=== PATIENT | female | born 1995 | race Caucasian/White ===

== ENCOUNTER 2017-02-18 14:03 | Emergency (ER) | payer OTHER ==
[2017-02-18 14:12] VITALS: BP 146/87; PULSE 102; TEMP 98; BMI 32.9
--- NOTE | 2017-02-18 14:13 | PDOC ---
Rapid Medical Evaluation Time Seen by Provider: 02/18/17 14:10 Medical Evaluation: 02/18/17 14:10 I have performed a brief in-person evaluation of this patient. The patient presents with a chief complaint of: 18 weeks , sent in by PMD for hyperemesis gravidarum and dehydration. No abd pain or vag bleed. Last US several weeks ago, due for another US this Thursday Pertinent physical exam findings:Well andres in NAD and stable I have ordered the following:chem/cbc/ua/upreg The patient will proceed to the ED for further evaluation. Discharge Disposition - Referrals Referrals: Clarissa Devi MD [Primary Care Provider] - - Patient Instructions - Post Discharge Activity
[2017-02-18 14:44] LABS: BASOPHIL 0.3 % (0-2.0); EOSINOPHIL 1.8 % (0-4.5); MCH 30.3 pg (25.7-33.7); MCHC 32.9 g/dl (32.0-36.0); MEAN CELL VOLUME 92.1 fl (80-96); MEAN PLT VOLUME 10.2 fl (7.5-11.1); NEUTROPHILS 72.9 % (42.8-82.8); PLATELET COUNT 198 K/MM3 (134-434); RDW 13.7 % (11.6-15.6); WHITE BLOOD COUNT 9.4 K/mm3 (4.0-10.0)
[2017-02-18 14:48] LABS: PH,URINE 6.5 (5.0-8.0); URINE APPEARANCE CLEAR; URINE BILIRUBIN 1+ (NEGATIVE); URINE BLOOD NEGATIVE (NEGATIVE); URINE COLOR ORANGE; URINE GLUCOSE (UA) NEGATIVE (NEGATIVE); URINE KETONE 3+ (NEGATIVE); URINE NITRITE NEGATIVE (NEGATIVE); URINE PROTEIN TRACE (NEGATIVE)
[2017-02-18 15:11] LABS: ALBUMIN 3.1 g/dl (3.4-5.0); ANION GAP 11 (8-16); CALCIUM 8.6 mg/dL (8.5-10.1); CO2 22 mmol/L (21-32); CREATININE 0.6 mg/dL (0.55-1.02); GLUCOSE,RANDOM 72 mg/dL (74-106); SGOT/AST 10 U/L (15-37); SGPT/ALT 16 U/L (12-78)
[2017-02-18 15:13] LABS: ALK PHOS 77 U/L (45-117); BILIRUBIN,TOTAL 0.3 mg/dL (0.2-1.0); TOT PROT 6.6 g/dl (6.4-8.2)
--- NOTE | 2017-02-18 15:34 | PDOC ---
History of Present Illness - General Chief Complaint: Nausea/Vomiting Stated Complaint: SENT BY PCP Time Seen by Provider: 02/18/17 14:10 History Source: Patient Exam Limitations: No Limitations - History of Present Illness Initial Comments: 02/18/17 16:05 MY CHIEF COMPLAINT: NAUSEA, VOMITING, LIGHTHEADEDNESS 18 WKS HISTORY OF PRESENT ILLNESS: She is a 21 year old female 18 weeks [address] Clarissa Devi due to patient being dehydrated as noted by ketones in the urine at the clinic today. Patient reports that she vomited on 02/09/2017, 02/17/17 twice and was nauseous during the day and felt lightheaded. Patient also reports today feeling nauseous but no vomiting and lightheadedness continues. Patient denies any fever, any nasal congestion, sore throat, cough, or any constipation or diarrhea or any other symptoms. Patient denies any vaginal discharge or vaginal bleeding. Patient is due to have an ultrasound for her on 02/20/2017. Patient reports last eating yesterday morning soup and nothing today due to feeling nauseous and lightheaded. Patient was sent here for hydration. 02/18/17 17:55 Timing/Duration: intermittent (nausea, vomiting 03/29 & 02/17 with lightheadedness , today no vomiting, nausea lightheadedness) Severity: moderate Associated Symptoms: reports: nausea/vomiting Past History - Past Medical History Allergies/Adverse Reactions: Allergies Allergy/AdvReac Type Severity Reaction Status Date / Time No Known Allergies Allergy Verified 02/18/17 14:11 Home Medications: Ambulatory Orders NK [No Known Home Medication] 02/18/17 COPD: No Other medical history: NONE - Suicide/Smoking/Psychosocial Hx Smoking History: Never smoked Review of Systems - Review of Systems Able to Perform ROS?: Yes Constitutional: Yes: Loss of Appetite HEENTM: No: Symptoms Reported Respiratory: No: Symptoms reported Cardiac (ROS): Yes: Lightheadedness ABD/GI: No: Symptoms Reported : No: Symptoms Reported Musculoskeletal: No: Symptoms Reported Integumentary: No: Symptoms Reported Neurological: No: Symptoms reported *Physical Exam - Vital Signs Last Vital Signs Temp Pulse Resp BP Pulse Ox 98.0 F 102 H 20 146/87 97 02/18/17 14:08 02/18/17 14:08 02/18/17 14:08 02/18/17 14:08 02/18/17 14:08 - Physical Exam General Appearance: Yes: Appropriately Dressed HEENT: positive: EOMI, KERRI, Normal ENT Inspection Neck: negative: Lymphadenopathy (R), Lymphadenopathy (L) Respiratory/Chest: positive: Lungs Clear, Normal Breath Sounds. negative: Chest Tender, Respiratory Distress Cardiovascular: positive: Regular Rhythm, Regular Rate, S1, S2 Gastrointestinal/Abdominal: positive: Normal Bowel Sounds, Soft. negative: Tender, Organomegaly, Distended, Rebound, Tenderness, Hepatomegaly, Spleenomegaly Integumentary: positive: Normal Color Neurologic: positive: sheet rocker II-XII NML intact, Fully Oriented, Alert, Normal Response, Respond to painful stimul, Responsive. negative: Numbness, Sensory Deficit ED Treatment Course - LABORATORY CBC & Chemistry Diagram: 02/18/17 14:25 02/18/17 14:25 - ADDITIONAL ORDERS Additional order review: Laboratory Results 02/18/17 02/18/17 14:25 14:25 Sodium 137 Potassium 4.1 Chloride 104 Carbon Dioxide 22 Anion Gap 11 BUN 10 Creatinine 0.6 Creat Clearance w eGFR > 60 Random Glucose 72 L Calcium 8.6 Total Bilirubin 0.3 AST 10 L ALT 16 Alkaline Phosphatase 77 Total Protein 6.6 Albumin 3.1 L Urine Color [place] Urine Appearance Clear Urine pH 6.5 Ur Specific [place] 1.025 Urine Protein Trace H Urine Glucose (UA) Negative Urine Ketones 3+ H Urine Blood Negative Urine Nitrite Negative Urine Bilirubin 1+ H Urine Urobilinogen 2.0 H Urine HCG, Qual Positive 02/18/17 14:25 RBC 3.87 MCV 92.1 MCHC 32.9 RDW 13.7 MPV 10.2 Neutrophils % 72.9 Lymphocytes % 20.3 Monocytes % 4.7 Eosinophils % 1.8 Basophils % 0.3 Medical Decision Making - Medical Decision Making 02/18/17 16:12 She is a 21 year old female 18 weeks [address] Clarissa Devi due to patient being dehydrated as noted by ketones in the urine at the clinic today. Patient reports that she vomited on 02/09/2017, 02/17/17 twice and was nauseous during the day and felt lightheaded. Patient also reports today feeling nauseous but no vomiting and lightheadedness continues. Patient denies any fever, any nasal congestion, sore throat, cough, or any constipation or diarrhea or any other symptoms. Patient denies any vaginal discharge or vaginal bleeding. Patient is due to have an ultrasound for her on 02/20/2017. Patient reports last eating yesterday morning soup and nothing today due to feeling nauseous and lightheaded. Patient was sent here for hydration. NAUSEA, VOMITING, DEHYDRATION WITH LIGHTHEADEDNESS IN PLAN IV INSERT D 5 WITH 0.9% NS BOLUS 1000 ML 02/18/17 16:15 Laboratory Tests 02/18/17 02/18/17 02/18/17 14:25 14:25 14:25 WBC 9.4 RBC 3.87 Hgb 11.7 Hct 35.6 MCV 92.1 MCH 30.3 MCHC 32.9 RDW 13.7 Plt Count 198 MPV 10.2 Neutrophils % 72.9 Lymphocytes % 20.3 Monocytes % 4.7 Eosinophils % 1.8 Basophils % 0.3 Sodium 137 Potassium 4.1 Chloride 104 Carbon Dioxide 22 Anion Gap 11 BUN 10 Creatinine 0.6 Creat Clearance w eGFR > 60 Random Glucose 72 L Calcium 8.6 Total Bilirubin 0.3 AST 10 L ALT 16 Alkaline Phosphatase 77 Total Protein 6.6 Albumin 3.1 L Urine Color [place] Urine Appearance Clear Urine pH 6.5 Ur Specific [place] 1.025 Urine Protein Trace H Urine Glucose (UA) Negative Urine Ketones 3+ H Urine Blood Negative Urine Nitrite Negative Urine Bilirubin 1+ H Urine Urobilinogen 2.0 H Urine HCG, Qual Positive 02/18/17 17:50 feeling better was able to drink and eat something here will have her follow up with Dr. Devi 02/18/17 17:55 *DC/Admit/Observation/Transfer Diagnosis at time of Disposition: Dehydration during , Nausea and vomiting during prior to 22 weeks gestation - Discharge Dispostion Disposition: HOME Condition at time of disposition: Stable - Referrals Referrals: Clarissa Devi MD [Primary Care Provider] - - Patient Instructions Additional Instructions: try to eat and drink as tolerated, gingerale, med tea and saltine crackers can decrease nausea follow up with Dr. Clarissa Devi as soon as possible return to emergency room if symptoms worsen patient voiced understanding of discharge instructions and all questions were answered - Post Discharge Activity
[2017-02-18] MEDS ORDERED: SODIUM CHLORIDE 1,000 ML IV STA (15:54)
[2017-02-18] MEDS ORDERED: DEXTROSE 5%-NORMAL SALINE 1,000 ML IV ONE (15:58)
[2017-02-18 19:58] LABS: URINE LEUK ESTERASE 1+ (NEGATIVE)
[2017-02-18 22:19] LABS: URINE BACTERIA MANY /hpf (NEGATIVE); URINE RBC 0-2 /hpf (0-3)
== END 2017-02-18 18:11 | disposition home or self-care (01) ==
LOC: JERFT 14:03
PROC: 3E0337Z Introduction of Electrolytic and Water Balance Substance into Peripheral Vein, Percutaneous Approach (ICD-10-PCS; principal; 2017-02-18)
DX: O26.892 Other specified pregnancy related conditions, second trimester (principal); O21.1 Hyperemesis gravidarum with metabolic disturbance; Z3A.18 18 weeks gestation of pregnancy
CPT/HCPCS: 36415; 80053; 81003; 81015; 84703; 85025; 96360; 99281-25

== ENCOUNTER 2017-07-01 17:15 | Inpatient (IN) | payer OTHER ==
[2017-07-01 19:15] VITALS: BMI 35.2
[2017-07-01] MEDS ORDERED: ELECTROLYTE-148 SOLN 1,000 ML IV SCH (20:45)
[2017-07-01 20:48] LABS: BASO % 0.2 % (0-2.0); EOS % 1.1 % (0-4.5); HEMATOCRIT 34.3 % (32.4-45.2); HEMOGLOBIN 11.4 GM/dL (10.7-15.3); LYMPH % 19.3 % (8-40); MCH 30.8 pg (25.7-33.7); MCHC 33.3 g/dl (32.0-36.0); MEAN CELL VOLUME 92.4 fl (80-96); MONO % 6.1 % (3.8-10.2); NEUT % 73.3 % (42.8-82.8); PLATELET COUNT 239 K/MM3 (134-434); RBC 3.71 M/mm3 (3.60-5.2); RDW 14.5 % (11.6-15.6); RETICULOCYTES 1.14 % (0.5-1.5); WHITE BLOOD COUNT 11.7 K/mm3 (4.0-10.0)
[2017-07-01 21:00] LABS: ANION GAP 5 (8-16); BLOOD UREA NITROGEN 13 mg/dL (7-18); CALCIUM 8.5 mg/dL (8.5-10.1); CHLORIDE 111 mmol/L (98-107); CO2 25 mmol/L (21-32); CREATININE 0.6 mg/dL (0.55-1.02); GAMMA GLUTAMYL TRANSPEPTIDASE 15 U/L (5-85); GLUCOSE,RANDOM 73 mg/dL (74-106); POTASSIUM 4.3 mmol/L (3.5-5.1); SGOT/AST 9 U/L (15-37); SGPT/ALT 19 U/L (12-78); SODIUM 141 mmol/L (136-145); URIC ACID 4.1 mg/dL (2.6-7.2)
[2017-07-01 21:03] LABS: INR 0.97 (0.82-1.09)
[2017-07-01 21:06] LABS: ACTIVATED PTT 25.2 SECONDS (26.9-34.4)
[2017-07-01 21:18] VITALS: PULSE 81
[2017-07-01 21:18] LABS: URINE APPEARANCE CLOUDY; URINE BILIRUBIN NEGATIVE (<2.0 mg/dL); URINE BLOOD NEGATIVE (NEGATIVE); URINE COLOR YELLOW; URINE GLUCOSE (UA) NEGATIVE (NEGATIVE); URINE KETONE NEGATIVE (NEGATIVE); URINE NITRITE NEGATIVE (NEGATIVE); URINE PROTEIN NEGATIVE (NEGATIVE); URINE UROBILINOGEN NEGATIVE mg/dL (0.2-1.0)
[2017-07-01 22:11] LABS: URINE LEUK ESTERASE 1+ (NEGATIVE)
[2017-07-01 22:16] VITALS: BP 135/83; TEMP 98.1
--- NOTE | 2017-07-01 22:34 | HP ---
Past Medical History - Admission Chief Complaint: Labor pain History of Present Illness: 21 yo , @ 39 weeks gestation, presents to L&D c/o labor pain. Upon admission there was evidence of elevated blood pressure. She denies any vaginal bleeding nor rupture of membrane. History Source: Patient Limitations to Obtaining History: No Limitations - Past Medical History ...: 1 ...Para: 0 ...LMP: 09/26/16 ... Weeks Gestation by Dates: 39.4 ...EDC by Dates: 07/04/17 ...EDC by Sono: 07/17/17 - Past Surgical History Past Surgical History: Yes: None Hx Myomectomy: No Hx Transabdominal Cerclage: No - Smoking History Smoking history: Never smoked Have you smoked in the past 12 months: No - Alcohol/Substance Use Hx Alcohol Use: No - Social History Usual Living Arrangement: Yes: With Significant Other History of Recent Travel: No Home Medications - Allergies Allergies/Adverse Reactions: Allergies Allergy/AdvReac Type Severity Reaction Status Date / Time No Known Allergies Allergy Verified 07/01/17 19:22 - Home Medications Home Medications: Ambulatory Orders Vit/Iron Fum/Folic AC [ Tablet] 1 tab PO DAILY 05/01/17 Family Disease History - Family Disease History Family History: Unremarkable Review of Systems - Review of Systems Constitutional: reports: No Symptoms Eyes: reports: No Symptoms HENT: reports: No Symptoms Neck: reports: No Symptoms Cardiovascular: reports: No Symptoms Respiratory: reports: No Symptoms Gastrointestinal: reports: No Symptoms Genitourinary: reports: Pain Breasts: reports: No Symptoms Reported Musculoskeletal: reports: No Symptoms Integumentary: reports: No Symptoms Neurological: reports: No Symptoms Endocrine: reports: No Symptoms Hematology/Lymphatic: reports: No Symptoms Psychiatric: reports: No Symptoms Pain Intensity: 5 Physical Exam - Maternity Vital Signs: Vital Signs Temperature 98.1 F 07/01/17 22:00 Pulse Rate 81 07/01/17 22:00 Respiratory Rate 20 07/01/17 22:00 Blood Pressure 135/83 07/01/17 22:00 O2 Sat by Pulse Oximetry (%) Constitutional: Yes: Well Nourished Eyes: Yes: Conjunctiva Clear HENT: Yes: Atraumatic Neck: Yes: Supple Cardiovascular: Yes: Regular Rate and Rhythm Lungs: Clear to auscultation - Abdominal Exam/OB Number of Fetuses: Single Presentation: Vertex Contractions: Yes Regularity: Irregular - Vaginal Exam/OB Vaginal Bleediing: No Dilatation (cm): 1-2 Effacement (%): 60 Amniotic Membrane Status: Intact Presentation: Vertex/Position Station: -2 - Physical Exam Musculoskeletal: Yes: WNL Extremities: Yes: WNL ...Motor Strength: WNL Psychiatric: Yes: Alert, Oriented - Labs Lab Results: CBC, BMP 07/01/17 19:50 07/01/17 19:50 Problem List - Problems (1) Pain during labor Code(s): O99.89 - OTH DISEASES AND CONDITIONS COMPL PREG/CHLDBRTH; R52 - PAIN, UNSPECIFIED Assessment/Plan Pain during labor induced Hypertension Admit to L&D [facility] Labs Continue close monitoring
--- NOTE | 2017-07-01 22:36 | PN ---
Progress Note (short form) - Note Progress Note: Patient re-evaluated Blood pressure has improved PIH Labs are WNL Patient found to be 37.5 weeks. Decision made to D/C home Problem List - Problems (1) Pain during labor Code(s): O99.89 - OTH DISEASES AND CONDITIONS COMPL PREG/CHLDBRTH; R52 - PAIN, UNSPECIFIED
--- NOTE | 2017-07-01 22:40 | DS ---
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 Vital Signs: Vital Signs Temperature 98.1 F 07/01/17 22:00 Pulse Rate 81 07/01/17 22:00 Respiratory Rate 20 07/01/17 22:00 Blood Pressure 135/83 07/01/17 22:00 O2 Sat by Pulse Oximetry (%) Constitutional: Yes: Well Nourished Eyes: Yes: Conjunctiva Clear HENT: Yes: Atraumatic Neck: Yes: Supple Respiratory: Yes: Regular Gastrointestinal: Yes: Normal Bowel Sounds Cervix: Yes: Other (1-2 cm) Uterus: Yes: Other (Gravid) Neurological: Yes: Alert, Oriented ...Motor Strength: WNL Psychiatric: Yes: Alert, Oriented Labs: CBC, BMP 07/01/17 19:50 07/01/17 19:50 Delivery, Single - Feeding Plan Initial Plan: Elected not to breastfeed exclusively throughout hospitalization Discharge Summary Reason For Visit: LABOR Current Active Problems Pain during labor (Acute) Procedures: Principal: Non Stress test Hospital Course: Non Stress test found to be reactive. PIH are WNL No cervical change Condition: Good - Instructions Diet, Activity, Other Instructions: Regular diet Labor precautions Return to L&D if pain worsen and if membrane rupture Referrals: Jazmyn Dumont MD [Staff Physician] - (patient to maintain appt as scheduled at clinic patient to increase amount of water she drinks to 10--120z glasses daily patient to return to labor & delivery if water breaks, regular contractions, vaginal bleeding or decreased movement patient verbalizes clear understanding of all discharge instructions patient discharged to home stable intact & undelivered) Disposition: HOME - Home Medications Comprehensive Discharge Medication List: Ambulatory Orders Vit/Iron Fum/Folic AC [ Tablet] 1 tab PO DAILY 05/01/17
[2017-07-01 22:55] LABS: EPI CELLS FEW /HPF (FEW); URINE BACTERIA RARE /hpf (NONE SEEN); URINE MUCUS RARE
== END 2017-07-01 22:30 | disposition home or self-care (01) | DRG 566 ==
LOC: JDEL 17:15 → JLDR 18:25
PROVIDERS: ADMIT Obstetrics & Gynecology; ATTEND Obstetrics & Gynecology
DX: O13.3 Gestational [pregnancy-induced] hypertension without significant proteinuria, third trimester (principal); Z3A.37 37 weeks gestation of pregnancy
CPT/HCPCS: 36415; 80048; 81003; 81015; 82977; 83010; 84450; 84460; 84550; 85025; 85044; 85610; 85730; 86593; 86850; 86900; 86901; 87389

== ENCOUNTER 2017-07-03 10:25 | Inpatient (IN) | payer OTHER ==
[2017-07-03] MEDS ORDERED: SODIUM CHLORIDE 1,000 ML IV SCH (12:00)
[2017-07-03] MEDS ORDERED: AMPICILLIN SODIUM 2 GM VIAL ONE (12:27)
[2017-07-03] MEDS ORDERED: AMPICILLIN - 2 GM in SODIUM CHLORIDE 100 ML IVPB ONE (12:30)
[2017-07-03] MEDS ORDERED: PROMETHAZINE HCL 25 MG/1 ML VIAL ONE (13:06)
[2017-07-03] MEDS ORDERED: BUTORPHANOL TARTRATE 1 MG/ML VIAL ONE ×2 (13:06)
[2017-07-03] MEDS ORDERED: PROMETHAZINE HCL 25 MG/1 ML VIAL IVPB ONE (13:45)
[2017-07-03] MEDS ORDERED: BUTORPHANOL TARTRATE 1 MG/ML VIAL IVPB ONE (13:45)
[2017-07-03 14:06] VITALS: BMI 35.2
[2017-07-03] MEDS: AMPICILLIN - 1 GM in SODIUM CHLORIDE 100 ML IVPB SCH ×2 (16:39→20:25)
[2017-07-03] MEDS ORDERED: OXYTOCIN 30 UNITS in 0.9% NS 30 UNIT/500 ML INFUS.BAG IVPB ONE (16:53)
[2017-07-03] MEDS ORDERED: OXYTOCIN 30 UNITS in 0.9% NS 30 UNIT/500 ML INFUS.BAG IVPB SCH (17:15)
[2017-07-03] MEDS ORDERED: AMPICILLIN SODIUM 1 GM VIAL ONE (20:04)
[2017-07-03] MEDS ORDERED: NALOXONE HCL 0.4 MG/ML VIAL IVPUSH PRN (20:38)
[2017-07-03] MEDS ORDERED: FENTANYL/BUPIVACAINE/NS/PF - PCEA - 50 ML DISP.SYRIN EP ONE (20:41)
--- NOTE | 2017-07-03 20:43 | HP ---
Past Medical History - Admission Chief Complaint: Labor pain History of Present Illness: 21 yo , @ 38 weeks gestation, EDC 07/17/17, admitted for labor pain. She denies any rupture of membrane nor vaginal bleeding. History Source: Patient Limitations to Obtaining History: No Limitations - Past Medical History ...: 1 ...Para: 0 ...Term: 0 ...: 0 ...Spon : 0 ...Induced : 0 ...Multiple Gestation: 0 ...LMP: 09/26/16 ... Weeks Gestation by Dates: 39.4 ...EDC by Dates: 07/04/17 ...EDC by Sono: 07/17/17 - Past Surgical History Past Surgical History: Yes: None Hx Myomectomy: No Hx Transabdominal Cerclage: No - Smoking History Smoking history: Never smoked Have you smoked in the past 12 months: No - Alcohol/Substance Use Hx Alcohol Use: No History of Substance Use: reports: None - Social History Usual Living Arrangement: Yes: With Significant Other History of Recent Travel: No Home Medications - Allergies Allergies/Adverse Reactions: Allergies Allergy/AdvReac Type Severity Reaction Status Date / Time No Known Allergies Allergy Verified 07/03/17 11:21 - Home Medications Home Medications: Ambulatory Orders Vit/Iron Fum/Folic AC [ Tablet] 1 tab PO DAILY 05/01/17 Family Disease History - Family Disease History Family History: Unremarkable Review of Systems - Review of Systems Constitutional: reports: No Symptoms Eyes: reports: No Symptoms HENT: reports: No Symptoms Neck: reports: No Symptoms Cardiovascular: reports: No Symptoms Respiratory: reports: No Symptoms Gastrointestinal: reports: No Symptoms Genitourinary: reports: Pain Breasts: reports: No Symptoms Reported Musculoskeletal: reports: No Symptoms Integumentary: reports: No Symptoms Neurological: reports: No Symptoms Endocrine: reports: No Symptoms Hematology/Lymphatic: reports: No Symptoms Psychiatric: reports: No Symptoms Pain Intensity: 7 Physical Exam - Maternity Vital Signs: Vital Signs Temperature 97.8 F 07/03/17 15:00 Pulse Rate 89 07/03/17 19:00 Respiratory Rate 20 07/03/17 19:00 Blood Pressure 132/74 07/03/17 19:00 O2 Sat by Pulse Oximetry (%) Constitutional: Yes: Well Nourished Eyes: Yes: Conjunctiva Clear HENT: Yes: Atraumatic Neck: Yes: Supple Cardiovascular: Yes: Regular Rate and Rhythm Lungs: Clear to auscultation - Abdominal Exam/OB Number of Fetuses: Single Presentation: Vertex Contractions: No - Vaginal Exam/OB Dilatation (cm): 4 Effacement (%): 70 Amniotic Membrane Status: Intact Presentation: Vertex/Position Station: -2 - Physical Exam Musculoskeletal: Yes: WNL Extremities: Yes: WNL Integumentary: Yes: WNL ...Motor Strength: WNL Psychiatric: Yes: Alert, Oriented Assessment/Plan Pain during labor Admit to L&D Analgesia as needed Anticipate
[2017-07-03] MEDS ORDERED: FENTANYL/BUPIVACAINE/NS/PF - PCEA - 50 ML DISP.SYRIN EP SCH (20:45)
[2017-07-03] MEDS ORDERED: ELECTROLYTE-148 SOLN 1,000 ML IV SCH (20:45)
--- NOTE | 2017-07-03 20:48 | PN ---
Progress Note (short form) - Note Progress Note: 21 yo @ 38 weeks gestation admitted for labor pain. She's seen and evaluated, she c/o moderate discomfort. She's status post stadol. FHR : Reassuring [place] : + regular contractions VE : 5 / 80 / -1 AROM ( clear ) A/P : Active labor Epidural anesthesia Continue Pitocin augmentation Anticipate
[2017-07-03] MEDS ORDERED: OXYTOCIN 20 UNITS in 0.9% NS 20 UNIT/1,000 ML INFUS.BAG IV ONE (23:25)
[2017-07-04] MEDS ORDERED: BISACODYL 10 MG SUPP.RECT RC PRN (00:14)
[2017-07-04] MEDS ORDERED: METHYLERGONOVINE MALEATE 0.2 MG/1 ML AMP IM PRN (00:14)
[2017-07-04] MEDS ORDERED: IBUPROFEN 600 MG TABLET (FP) PO PRN (00:14)
[2017-07-04] MEDS ORDERED: BENZOCAINE 20% 57 GM BOTTLE TP PRN (00:14)
[2017-07-04] MEDS ORDERED: WITCH HAZEL 50% (TUCKS) 40 PAD/JAR PAD TP PRN (00:14)
[2017-07-04] MEDS ORDERED: ACETAMINOPHEN 325 MG TABLET (FP) PO PRN (00:14)
[2017-07-04] MEDS ORDERED: BENZOCAINE 28 GM HEMORRHOIDAL OINTMENT TP PRN (00:14)
[2017-07-04] MEDS ORDERED: OXYTOCIN 20 UNITS in 0.9% NS 20 UNIT/1,000 ML INFUS.BAG IV SCH (00:15)
--- NOTE | 2017-07-04 00:18 | PN ---
Delivery - Delivery Vaginal Delivery: Spontaneous Type of Anesthesia: Epidural Episiotomy/Laceration: None EBL (cc): 300 Delivery, Single - Feeding Plan Initial Plan: Elected not to breastfeed exclusively throughout hospitalization Remarks - Remarks Remarks: Normal spontaneous vaginal delivery of a live infant girl over intact perineum. Nose / Oropharynx suctioned @ perineum. Nuchal cord x 1 clamped and cut. Placenta expelled spontaneously intact.
[2017-07-04] MEDS ORDERED: OXYTOCIN 20 UNITS in 0.9% NS 20 UNIT/1,000 ML INFUS.BAG IV ONE (01:32)
[2017-07-04] MEDS: FERROUS SO4 325 MG TABLET (FP) PO SCH ×3 (08:00→16:54)
[2017-07-04] MEDS: PRENATAL VITAMINS W/ FOLIC ACID TABLET (FP) PO SCH (10:00)
[2017-07-04] MEDS ORDERED: FLU VACC QS2017-18 36MOS UP/PF 60 MCG/0.5 ML SYRINGE IM ONE (10:00)
--- NOTE | 2017-07-05 07:34 | PN ---
Post Progress Note - Subjective Subjective: 21 yo Para 1 status post vaginal delivery, seen and evaluated. Doing well. Post Day: 1 Type of Delivery: Vital Signs: Vital Signs Temperature 97.9 F 07/04/17 21:00 Pulse Rate 95 H 07/04/17 21:00 Respiratory Rate 20 07/04/17 21:00 Blood Pressure 110/71 07/04/17 21:00 O2 Sat by Pulse Oximetry (%) 100 07/04/17 00:30 Breast Exam: Yes: Soft Uterus: Yes: Fundus Firm Abdomen/GI: Yes: Abdomen soft, Tolerating PO Lochia: Yes: Rubra Lochia, amount: Moderate Extremities: Yes: Calves non-tender Perineum: Yes: Intact Activity: Ambulating Assessment/Plan Normal spontaneous vaginal delivery Stable Continue routine care
--- NOTE | 2017-07-05 07:43 | DS ---
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 Vital Signs: Vital Signs Temperature 97.9 F 07/04/17 21:00 Pulse Rate 95 H 07/04/17 21:00 Respiratory Rate 20 07/04/17 21:00 Blood Pressure 110/71 07/04/17 21:00 O2 Sat by Pulse Oximetry (%) 100 07/04/17 00:30 Constitutional: Yes: Well Nourished Eyes: Yes: Conjunctiva Clear HENT: Yes: Atraumatic Neck: Yes: Supple Cardiovascular: Yes: Regular Rate and Rhythm Respiratory: Yes: Regular Gastrointestinal: Yes: Normal Bowel Sounds Pelvis: Yes: WNL External Genitalia: Yes: Normal Vaginal Exam: Yes: Normal Cervix: Yes: Normal Uterus: Yes: Firm ....Post : Yes: Uterus firm, Moderate lochia serosa Breast(s): Yes: WNL Neurological: Yes: Alert, Oriented ...Motor Strength: WNL Psychiatric: Yes: Alert, Oriented Delivery - Delivery Vaginal Delivery: Spontaneous Type of Anesthesia: Epidural Episiotomy/Laceration: None EBL (cc): 300 Delivery, Single - Stages of Labor Date 1st Stage Initiatied: 07/03/17 Time 1st Stage Initiated: 12:00 Date 2nd Stage Initiated: 07/03/17 Time 2nd Stage Initiated: 23:40 Date of Delivery: 07/04/17 Time of Delivery: 00:05 Time Placenta Delivered: 00:10 - Condition of Infant Transportation Design Engineer/Fringe Maker Present: No Gender: Female Weight: 5 lb 4 oz Position: Right, OA Total Hours ROM (Hrs/Mins): 3h 35m - 1 Minute Total Score: 9 5 Minutes Total Score: 9 - Sarah Feeding Plan Initial Plan: Elected not to breastfeed exclusively throughout hospitalization Discharge Summary Current Active Problems Normal spontaneous vaginal delivery (Acute) Procedures: Principal: Normal spontaneous vaginal delivery Hospital Course: Routine care Condition: Good - Instructions Diet, Activity, Other Instructions: Regular diet No douching, no sexual intercourse x 6 weeks. F/U in clinic in 6 weeks Disposition: HOME - Home Medications Comprehensive Discharge Medication List: Ambulatory Orders Vit/Iron Fum/Folic AC [ Tablet] 1 tab PO DAILY 05/01/17
[2017-07-05 08:38] LABS: BASO % 0.3 % (0-2.0); EOS % 2.3 % (0-4.5); HEMOGLOBIN 10.5 GM/dL (10.7-15.3); LYMPH % 23.5 % (8-40); MCH 30.2 pg (25.7-33.7); MCHC 32.7 g/dl (32.0-36.0); MEAN CELL VOLUME 92.3 fl (80-96); MEAN PLT VOLUME 10.5 fl (7.5-11.1); MONO % 5.3 % (3.8-10.2); NEUT % 68.6 % (42.8-82.8); PLATELET COUNT 187 K/MM3 (134-434); RBC 3.47 M/mm3 (3.60-5.2); RDW 14.7 % (11.6-15.6); WHITE BLOOD COUNT 11.6 K/mm3 (4.0-10.0)
[2017-07-05] MEDS: FERROUS SO4 325 MG TABLET (FP) PO SCH ×3 (08:41→17:21)
[2017-07-05] MEDS: PRENATAL VITAMINS W/ FOLIC ACID TABLET (FP) PO SCH (09:45)
[2017-07-05] MEDS ORDERED: SENNOSIDES/DOCUSATE COMBO (SENNA PLUS) TABLET (UD) PO PRN (22:00)
--- NOTE | 2017-07-06 04:46 | PN ---
Post Progress Note - Subjective Subjective: 21 yo Para 1status post vaginal delivery, seen and evaluated. No complaints. Post Day: 2 Type of Delivery: Vital Signs: Vital Signs Temperature 97.6 F 07/05/17 21:00 Pulse Rate 87 07/05/17 21:00 Respiratory Rate 20 07/05/17 21:00 Blood Pressure 132/65 07/05/17 21:00 O2 Sat by Pulse Oximetry (%) 100 07/04/17 00:30 Breast Exam: Yes: Soft Uterus: Yes: Fundus Firm Abdomen/GI: Yes: Abdomen soft, Tolerating PO Lochia: Yes: Rubra Lochia, amount: Small Extremities: Yes: Calves non-tender Activity: Ambulating - Labs Labs: CBC WBC 11.6 K/mm3 (4.0-10.0) H 07/05/17 06:35 RBC 3.47 M/mm3 (3.60-5.2) L 07/05/17 06:35 Hgb 10.5 GM/dL (10.7-15.3) L 07/05/17 06:35 Hct 32.0 % (32.4-45.2) L 07/05/17 06:35 MCV 92.3 fl (80-96) 07/05/17 06:35 MCH 30.2 pg (25.7-33.7) 07/05/17 06:35 MCHC 32.7 g/dl (32.0-36.0) 07/05/17 06:35 RDW 14.7 % (11.6-15.6) 07/05/17 06:35 Plt Count 187 K/MM3 (134-434) D 07/05/17 06:35 MPV 10.5 fl (7.5-11.1) 07/05/17 06:35 Neutrophils % 68.6 % (42.8-82.8) 07/05/17 06:35 Lymphocytes % 23.5 % (8-40) D 07/05/17 06:35 Monocytes % 5.3 % (3.8-10.2) 07/05/17 06:35 Eosinophils % 2.3 % (0-4.5) D 07/05/17 06:35 Basophils % 0.3 % (0-2.0) 07/05/17 06:35 Assessment/Plan Status post vaginal delivery Stable Discharge home F/U with MD in 6 weeks
[2017-07-06] MEDS: FERROUS SO4 325 MG TABLET (FP) PO SCH ×2 (08:15→11:48)
[2017-07-06 08:28] VITALS: BP 137/80; PULSE 80; TEMP 97.8
[2017-07-06] MEDS: PRENATAL VITAMINS W/ FOLIC ACID TABLET (FP) PO SCH (09:18)
== END 2017-07-06 16:10 | disposition home or self-care (01) | DRG 560 ==
LOC: JDEL 10:25 → JLDR 11:45 → J3W 07-04 01:52
PROVIDERS: ADMIT Obstetrics & Gynecology; ATTEND Obstetrics & Gynecology
PROC: 10E0XZZ Delivery of Products of Conception, External Approach (ICD-10-PCS; principal; 2017-07-04)
DX: O80 Encounter for full-term uncomplicated delivery (principal); Z3A.38 38 weeks gestation of pregnancy; Z37.0 Single live birth
CPT/HCPCS: 36415; 59409; 82962; 85025; 90686; G0008; J7030

== ENCOUNTER 2018-02-16 10:54 | Emergency (ER) | payer OTHER ==
[2018-02-16 11:06] VITALS: BMI 32.5
--- NOTE | 2018-02-16 12:08 | PDOC ---
History of Present Illness - General Chief Complaint: Shortness of Breath Stated Complaint: PAIN, LT SIDED Time Seen by Provider: 02/16/18 11:27 History Source: Patient Exam Limitations: No Limitations - History of Present Illness Initial Comments: 02/16/18 14:01 The patient is a 22 year old female with no significant past medical history of here today for evaluation of lower back pain. The patient reports that her pain began 2 days ago and is worse when she inspires or moves. She rates her pain as a 5-6/10 normally but is an 8/10 when she bends or twists her back and is a stabbing pain in quality. She notes having given 7 months ago and has had irregular periods for the past few months. She reports she is on a depo shot. She notes normal bowel movements. Patient denies headache, lightheadedness. Denies fever, chills. Denies chest pain, shortness of breath. Denies nausea, vomiting, diarrhea, abdominal pain. Denies lower extremity edema. Denies urinary symptoms. Denies neurologic symptoms. Allergies: NKA Surgical history: none reported PCP: none reported Past History - Past Medical History Allergies/Adverse Reactions: Allergies Allergy/AdvReac Type Severity Reaction Status Date / Time No Known Allergies Allergy Verified 07/03/17 11:21 Home Medications: Ambulatory Orders Vit/Iron Fum/Folic AC [ Tablet] 1 tab PO DAILY 05/01/17 Cyclobenzaprine HCl [Flexeril 10 mg] 10 mg PO TID PRN #15 tablet 02/16/18 Ibuprofen 600 mg PO QID PRN #20 tablet 02/16/18 Lidocaine 5% Patch [Lidoderm Patch -] 1 patch TP DAILY PRN #7 patch 02/16/18 Asthma: No Cancer: No Cardiac Disorders: No COPD: No Diabetes: No HTN: No Seizures: No Thyroid Disease: No - Immunization History Immunization Up to Date: Yes - Suicide/Smoking/Psychosocial Hx Smoking History: Never smoked Have you smoked in the past 12 months: No Information on smoking cessation initiated: No Hx Alcohol Use: No Drug/Substance Use Hx: No Substance Use Type: None Hx Substance Use Treatment: No Review of Systems - Review of Systems Able to Perform ROS?: Yes Comments:: 02/16/18 14:02 GENERAL/CONSTITUTIONAL: No fever or chills. No weakness. no sweats. CARDIOVASCULAR: No chest pain or palpitations, syncope or edema. RESPIRATORY: +SOB. No cough, wheezing, or hemoptysis. GASTROINTESTINAL No nausea/vomiting. No diarrhea or constipation. No bloody stools. GENITOURINARY: +irregular periods. No hematuria, dysuria, frequency, urgency or other changes. MUSCULOSKELETAL: +lower back pain. No joint or muscle swelling or pain. No neck pain. SKIN: No rash or changes in skin color or lesions. NEUROLOGIC: No headache, vertigo, loss of consciousness, or change in strength/ sensation. No gait instability. HEMATOLOGIC/LYMPHATIC: No anemia, easy bruising/bleeding, or history of blood clots. ALLERGIC/IMMUNOLOGIC: No allergies All other systems reviewed and negative, or as documented in HPI. *Physical Exam - Vital Signs Last Vital Signs Temp Pulse Resp BP Pulse Ox 98.2 F 69 15 109/68 95 02/16/18 11:02 02/16/18 11:02 02/16/18 11:02 02/16/18 11:02 02/16/18 11:02 - Physical Exam Comments: 02/16/18 14:03 General: Well appearing, awake and alert, NAD. HEENT: NCAT, PERRL, EOMI, clear conjunctiva, anicteric, moist mucus membranes, clear oropharynx, no oral lesions.. Neck: neck supple, FROM Resp: CTAB, normal and even respirations, no respiratory distress CVS: RRR, no murmurs, 2+ peripheral pulses throughout, no peripheral edema Abdomen: soft, NTND, no peritoneal signs. no CVAT Back:+Left sided paravertebral and flank tenderness. normal inspection and ROM MSK: no edema, SOLIS x4, ROM intact. No clubbing or cyanosis. normal bulk and tone. Neuro: alert, oriented appropriately; no focal neurologic deficits Skin: warm and well perfused, cap refill <2 sec, normal color Moderate Sedation - Procedure Monitoring Vital Signs: Procedure Monitoring Vital Signs Temperature 98.2 F 02/16/18 11:02 Pulse Rate 69 02/16/18 11:02 Respiratory Rate 15 02/16/18 11:02 Blood Pressure 109/68 02/16/18 11:02 O2 Sat by Pulse Oximetry (%) 95 02/16/18 11:02 Procedures - Bedside Ultrasound Remarks: 02/16/18 14:25 POCUS renal exam performed, indication includes abdominal/flank pain. views obtained: bilateral kidneys in short and long axis, bladder. findings: no evidence of hydronephrosis. Impression: normal kidneys. ED Treatment Course - LABORATORY CBC & Chemistry Diagram: 02/16/18 12:09 02/16/18 12:09 Medical Decision Making - Medical Decision Making 02/16/18 14:03 22 YOF with left sided flank/back pain. denies trauma or urinary/systemic sx. no other precipitants, no abdominal sx. DDx. renal colic, msk strain, paralumbar strain. UTI, pyelonephritis. . PE. Vital signs reviewed, wnl. Prior notes reviewed, including admissions, discharges and consultations. laboratory results and imaging reviewed, basic labs and lytes wnl, notable for normal LFTs and Cr. UA_normal, no infection or blood, neg preg test. ED course unremarkable. given analgesia, toradol, flexeril and lidoderm patch, symptoms improved, no midline or neuro sx. more paravertebral paravertebral/ lumbar tenderness, worse with movement so likely msk in nature, reassuring. no neuro changes, ambulatory, pain controlled and comfortable in bed.. rx same meds and continued supportive care. POCUS renal neg for hydro. normal bladder,no pelvic fluid. reassuring renal sono, so doubt renal colic/ureterolithiasis. cannot perc out, +OCP use. Dimer sent given left sided pain and sob. Dimer negative, low suspicion and likelihood for PE. CXR_clear, no infiltrate or edema. rx meds, supportive care, avoid triggers and stress and strenuous activity. f/u PCP, referrals given, bedside reassurance given, return precautions discussed. Dispo: Pt to be discharged in stable condition. Patient made aware of impression and plan, return precautions discussed (including but not limited to worsening pain or symptoms), fevers, or signs of infection, chest pain, respiratory distress, inability to tolerate oral intake, dehydration, syncope, or neurologic changes). Follow up with PMD and/or specialist as recommended, follow up information provided, take medications as instructed for duration of time. continue with supportive care, avoid triggers and precipitants. All questions answered to patient's satisfaction and expressed understanding and comfort with this. 02/16/18 15:23 *DC/Admit/Observation/Transfer Diagnosis at time of Disposition: Back pain - Discharge Dispostion Disposition: HOME Condition at time of disposition: Improved Decision to Admit order: No - Prescriptions Prescriptions: Cyclobenzaprine HCl [Flexeril 10 mg] 10 mg PO TID PRN #15 tablet PRN Reason: Muscle Spasms Ibuprofen 600 mg PO QID PRN #20 tablet PRN Reason: Pain Level 4 - 6 Lidocaine 5% Patch [Lidoderm Patch -] 1 patch TP DAILY PRN #7 patch PRN Reason: Pain Level 4 - 6 - Referrals Referrals: [facility] [Provider Group] [facility] [place] [facility] [Provider Group] - Patient Instructions Printed Discharge Instructions: DI for Low Back Pain, DI for Back Spasm, DI for Back Strain or Sprain Additional Instructions: your bedside ultrasound was normal kidneys XR also normal, you most likely do not have a blood clot with normal blood work. blood work and kidney function also normal you most likely have a strain to your lower back or nerve inflammation rest and avoid strenuous activity or exercise may use flexeril, that can make you feel sleepy do not drive or operate machinery may take motrin and/or tylenol every 6 hours for pain control, topical lidoderm patch as well. - Post Discharge Activity
[2018-02-16] MEDS ORDERED: ACETAMINOPHEN 325 MG TABLET (FP) PO ONE (12:10)
[2018-02-16 12:16] LABS: BASO % 0.7 % (0-2.0); EOS % 5.1 % (0-4.5); HEMATOCRIT 42.5 % (32.4-45.2); HEMOGLOBIN 13.4 GM/dL (10.7-15.3); LYMPH % 31.6 % (8-40); MCH 28.7 pg (25.7-33.7); MCHC 31.5 g/dl (32.0-36.0); MEAN PLT VOLUME 11.7 fl (7.5-11.1); MONO % 5.7 % (3.8-10.2); NEUT % 56.9 % (42.8-82.8); PLATELET COUNT 226 K/MM3 (134-434); RBC 4.67 M/mm3 (3.60-5.2); WHITE BLOOD COUNT 7.5 K/mm3 (4.0-10.0)
[2018-02-16 12:18] LABS: URINE APPEARANCE CLEAR; URINE BILIRUBIN NEGATIVE (<2.0 mg/dL); URINE COLOR YELLOW; URINE GLUCOSE (UA) NEGATIVE (NEGATIVE); URINE KETONE NEGATIVE (NEGATIVE); URINE LEUK ESTERASE TRACE (NEGATIVE); URINE NITRITE NEGATIVE (NEGATIVE); URINE PROTEIN NEGATIVE (NEGATIVE)
[2018-02-16 12:19] LABS: HCG,QUALITATIVE URINE Negative
[2018-02-16 12:34] LABS: EPI CELLS RARE /HPF (FEW); URINE HYALINE CAST 1 /lpf; URINE MUCUS FEW
[2018-02-16 12:46] LABS: ALK PHOS 80 U/L (45-117); ANION GAP 7 MMOL/L (8-16); BILIRUBIN,TOTAL 0.4 mg/dL (0.2-1); BLOOD UREA NITROGEN 14 mg/dL (7-18); CALCIUM 9.1 mg/dL (8.5-10.1); CHLORIDE 106 mmol/L (98-107); CO2 25 mmol/L (21-32); CREATININE 0.8 mg/dL (0.55-1.3); GLUCOSE,RANDOM 81 mg/dL (74-106); POTASSIUM 4.2 mmol/L (3.5-5.1); SGOT/AST 16 U/L (15-37); SGPT/ALT 28 U/L (13-61); SODIUM 138 mmol/L (136-145); TOT PROT 7.5 g/dl (6.4-8.2)
[2018-02-16] MEDS ORDERED: ACETAMINOPHEN 325 MG TABLET (FP) ONE (12:59)
[2018-02-16] MEDS ORDERED: KETOROLAC TROMETHAMINE 15 MG/ML VIAL IVPUSH ONE (13:13)
[2018-02-16] MEDS ORDERED: LIDOCAINE 5% TOPICAL PATCH TP ONE (13:13)
[2018-02-16] MEDS ORDERED: LIDOCAINE 5% TOPICAL PATCH ONE (13:41)
[2018-02-16] MEDS ORDERED: KETOROLAC TROMETHAMINE 15 MG/ML VIAL ONE (13:41)
[2018-02-16] MEDS ORDERED: CYCLOBENZAPRINE HCL 5 MG TABLET PO ONE (14:01)
[2018-02-16] MEDS ORDERED: CYCLOBENZAPRINE HCL 10 MG TABLET (FP) ONE (14:13)
[2018-02-16 15:48] VITALS: BP 110/69; PULSE 82; TEMP 98.4
[2018-02-16] MEDS ORDERED: LIDOCAINE PATCH REMOVAL MC SCH (22:00)
== END 2018-02-16 15:46 | disposition home or self-care (01) ==
LOC: JER 10:54
PROC: 3E0333Z Introduction of Anti-inflammatory into Peripheral Vein, Percutaneous Approach (ICD-10-PCS; principal; 2018-02-16)
PROC: BT4JZZZ Ultrasonography of Kidneys and Bladder (ICD-10-PCS; 2018-02-16)
DX: M54.5 Low back pain (principal)
CPT/HCPCS: 36415; 71046-TC-FY; 76770; 80053; 81003; 81015; 84703; 85025; 85379; 87086; 96374; 99283-25